=== PATIENT | male | born 1965 | race Caucasian/White ===

== ENCOUNTER 2017-02-19 06:09 | Day surgery (SDC) | payer OTHER ==
--- NOTE | ~2017-02-19 | OP ---
Record Of Operation [facility] [address] [place]. [address] NAME: IVONNE THOMSON : 67 STATUS : [facility]#: [id number] AGE: 51 ADM/REG DATE : 02/19/17 MR#: [id number] REPORT SERV DATE: 02/19/17 DICTATED BY: IJEOMA MEDINA DATE: 02/19/17 REPORT STATUS : Draft TRANSCRIBED BY: TATIANA DATE: 02/19/17 DATE OF PROCEDURE: 02/19/2017 PREPROCEDURE DIAGNOSIS: A 9 mm left distal ureteral calculus. POSTPROCEDURE DIAGNOSIS: A 9 mm left distal ureteral calculus. PROCEDURE: Left ESWL. SURGEON: Ijeoma Medina M.D. PAINTER ORDNANCE: Shannan Hamilton. ANESTHESIA: MAC. HISTORY: Mr. Thomson is a 51-year-old white gentleman with a symptomatic large distal left ureteral stone. We discussed treatment options and he requested left ESWL. The risks specific to this procedure include, but not limited to bleeding, infection, incomplete stone fragmentation, Steinstrasse, hematoma, injury to neighboring organs, need for further urologic procedures, anesthesia complications, and so forth. I answered all of his questions I believe to his satisfaction. Subsequently, he requested the procedure and provided informed written consent. PROCEDURE IN DETAIL: On 02/19/2017, the patient was brought to the lithotripsy suite. He was placed supine on the Dornier Complex Delta II lithotripter. Biplanar fluoroscopy was used to localize the left ureteral calculus. A time-out was called. The proper patient and procedure were confirmed. Levaquin was administered as a perioperative antibiotic. At this time, the Anesthesia team established monitored anesthesia care. Subsequently, we delivered a total of 2500 shocks at a maximum power of 5 in maximum rate of 120 shocks per minute to the calculus. Fluoroscopy time was 50 seconds. The patient tolerated the procedure well without immediate complications and was transferred to the recovery area in stable condition. LOUIS/TATIANA Ijeoma Medina M.D. / [id number] CC: Ijeoma Medina M.D. Liza Saha M.D.
[~2017-02-19 06:09] MED LIST: ALLEGRA-D12 HOUR PO; AZULFENTAB PO; B COMPLETE PO; B121000P IM; CALCIUM; CALCIUM PO; CALTRA600D PO; CENTRUM TAB1 TAB PO; ENTOCORT3 PO; FERROUS SULF325 M1 PO; FISH OIL; FISH-EPA1000 MG PO; FLOMAX4 PO; FOLIC PO; HUMIRA; HUMIRA SC; K-PHO1 OR; K-TABS10 MEQ PO; MULTIPLE VIT PO; MULTIVITAMI1 PO; NIACIN250 M1 PO; NORCO1 TA2 PO; OS500+D PO; P20 PO; PCET PO; PENTASA500 MG PO; POTASSIUM; POTASSIUM95 MG PO; PR25 PO; SAS500 PO; VIT B; VIT D; VITA; VITAMIN 12; VITAMIN B PO; VITAMIN B-121000 MC1 SL; VITAMIN B-122500 MCG SL; VITAMIN C; VITAMIN C100 M1 PO; VITAMIN C100 MG PO; VITAMIN D1000 UNI1 PO; WELCHOL625 MG OR; [UNRECOGNIZED DRUG - OTHER] PO
== END 2017-02-19 09:50 | disposition home or self-care (01) ==
LOC: SDC 06:09
PROVIDERS: Urology
PROC: 0TF7XZZ Fragmentation in Left Ureter, External Approach (ICD-10-PCS; principal; 2017-02-19 08:00)
DX: N20.1 Calculus of ureter (principal); K50.90 Crohn's disease, unspecified, without complications; Z90.49 Acquired absence of other specified parts of digestive tract; Z98.890 Other specified postprocedural states; Z88.1 Allergy status to other antibiotic agents; Z79.899 Other long term (current) drug therapy; Z90.89 Acquired absence of other organs; Z90.79 Acquired absence of other genital organ(s); Z87.442 Personal history of urinary calculi
CPT/HCPCS: 50590; 74000; 93005; J2250; J2405; J3010